=== PATIENT | male | born 1995 | race Caucasian/White ===

== ENCOUNTER → 2019-05-18 09:43 | Outpatient (CLI) | payer OTHER, SELFPAY ==
--- NOTE | 2019-05-18 | DI.MRI.S_ITS ---
PROCEDURE: MR KNEE RT WO CON INDICATIONS: Pain in right knee TECHNIQUE: Noncontrast sagittal PD fast spin echo and T2 fast spin echo with fat saturation, sagittal 3-D FLASH with fat saturation; coronal T1 spin echo and PD fast spin echo with fat saturation, and axial PD fast spin echo with fat saturation through the knee. COMPARISON: None. FINDINGS: Image quality: Excellent. Menisci: The medial and lateral menisci demonstrate normal morphology and internal signal. The meniscal root ligaments appear intact. Cruciate ligaments: Markedly thickened anterior cruciate ligament with intrasubstance fluid signal is seen suggestive of moderate grade partial-thickness tear. No full-thickness ACL rupture. Posterior cruciate ligament is intact. Medial structures: High-grade partial-thickness tear involving the midportion of medial collateral ligament is seen, focal full-thickness perforation cannot be excluded.. The posterior oblique ligament, semimembranosus tendon insertions, oblique popliteal ligament, and meniscocapsular junction appear intact. Visualized portions of the pes anserinus tendons appear normal. No abnormal bursal fluid. Lateral structures: The lateral collateral ligament, long and short heads of the biceps femoris tendon appear intact. The popliteus tendon appears normal; the popliteofibular ligament appears intact. The posterosuperior and anteroinferior popliteomeniscal fascicles appear intact. The arcuate and fabellofibular ligaments appear intact, on either side of the lateral inferior geniculate artery. Iliotibial band appears normal. Anterior structures: The quadriceps and patellar tendons appear intact. Patellar alignment is normal. No femoral trochlear dysplasia or ventral trochlear prominence. No edema in the infrapatellar fat pad. Bones and cartilage: There is marrow edema involving medial periphery of medial femoral condyle with no discrete fracture line seen. Marrow edema is also seen in posterior and lateral portion of proximal tibial shaft extending to lateral tibial plateau. No discrete fracture line is identified. Articulating cartilage in medial and lateral femoral tibial compartments and patellofemoral compartment are grossly intact. Joint space: There is small amount of joint fluid, no gross loose body. No Ng's cyst. Normal appearing synovial plicae are incidentally noted. IMPRESSION: 1. Suggestion of sprain and moderate grade intrasubstance partial-thickness tear involving anterior cruciate ligament. No full-thickness ACL rupture. PCL is intact. 2. High-grade partial-thickness tear involving proximal to midportion of medial collateral ligament, focal area of full thickness perforation cannot be excluded. 3. Bony contusion involving medial periphery of medial femoral condyle and posterior lateral aspect of proximal fibular shaft extending to lateral tibial plateau. No definite fracture is seen. 4. No evidence of focal meniscal tear. Dictated by: Osmar Tomas M.D. on 05/18/2019 at 12:47 Approved by: Osmar Tomas M.D. on 05/18/2019 at 12:57
== END ==
DX: M25.561 Pain in right knee (principal); S83.411A Sprain of medial collateral ligament of right knee, initial encounter; S80.01XA Contusion of right knee, initial encounter
CPT/HCPCS: 73721

== ENCOUNTER 2020-12-23 21:27 | Emergency (ER) | payer OTHER, SELFPAY ==
[2020-12-23 21:37] VITALS: BP 112/51; PULSE 69; RESP 14; TEMP 36.5; O2SAT 100; BMI 22.4
--- NOTE | 2020-12-23 23:57 | ED_ITS ---
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 He states that he flew twice today have a 2nd flight and landing was significantly worse. He noticed some pain on the 1st flight and it progressively got worse. He denies any drainage or blood. He is having a mild sore throat as well no fevers. Related Data Previous Rx's Medication Instructions Recorded amoxicillin 500 mg capsule 500 mg PO BID #14 cap 12/24/20 amoxicillin 500 mg capsule 500 mg PO TID #21 cap 12/24/20 Allergies Allergy/AdvReac Type Severity Reaction Status Date / Time No Known Drug Allergies Allergy Verified 12/23/20 21:37 Review of Systems Review of Systems Narrative: GENERAL: Denies chills,fever HEENT: See HPI RESPIRATORY: Denies dyspnea, cough, wheezing CARDIOVASCULAR: Denies chest pain, palpitations GASTROINTESTINAL: Denies nausea, vomiting MUSCULOSKELETAL: Denies extremity pain, injury SKIN: No rash, no laceration, no pruritus NEUROLOGIC: Denies weakness, dizziness, headache, numbness 8 point review of systems is negative except for those stated above and HPI Patient History Social History Smoking Status: Never smoker Smoking Status: Never smoker Substance Use Type: does not use Exam Initial Vital Signs Initial Vital Signs: Vital Signs Temperature 97.7 F 12/23/20 21:37 Pulse Rate 69 12/23/20 21:37 Respiratory Rate 14 12/23/20 21:37 Blood Pressure 112/51 L 12/23/20 21:37 Pulse Oximetry 100 12/23/20 21:37 GENERAL: Alert and well-appearing 25-year-old male EAR: Right ear is within normal limits Left ear is quite erythematous tympanic membrane is ruptured. No blood. No gross discharge. CARDIOVASCULAR: peripheral pulses in tact, cap refill <2 sec RESPIRATORY: No respiratory distress, speaks in full sentences without difficulty EXTREMITIES: Normal range of motion, no clubbing or edema. Neurovascularly intact NEUROLOGICAL: Cranial nerves II through XII grossly intact. Normal gait and speech. SKIN: Warm, dry, no petechiae, no rashes or lesions. Course Orders Ordered: Discontinued Medications Amoxicillin (Amoxicillin 250 Mg Prepack) 1 bottle MISC SEEINSTR ONE Stop: 12/24/20 00:11 Last Admin: 12/24/20 00:17 Dose: 1 bottle Documented by: MARTIN Ibuprofen (Ibuprofen 400 Mg Tablet) 800 mg PO NOW ONE Stop: 12/24/20 00:11 Last Admin: 12/24/20 00:17 Dose: 800 mg Documented by: MARTIN Vital Signs Vital signs: Vital Signs - 8 hr 12/23/20 21:37 12/24/20 00:18 Temperature 97.7 F Pulse Rate 69 79 Respiratory Rate 14 14 Blood Pressure 112/51 L 110/59 L Pulse Oximetry 100 100 Medical Decision Making MDM Narrative Medical decision making narrative: Patient does have a ruptured tympanic membrane. It is erythematous home no drainage. Will treat him for otitis. [place] no [place] in till tympanic membrane has healed. Discharge Plan Departure Patient Disposition: Home Clinical Impression: Otitis media with rupture of tympanic membrane Qualifiers: Laterality: left Qualified Code(s): H66.92 - Otitis media, unspecified, left ear Instructions: Ruptured Eardrum Activity Restrictions/Additional Instructions: *You have been diagnosed with ruptured tympanic membrane with infection *What to do: At this time it appears that you have an infection that caused ear tympanic membrane to rupture. Unfortunately there is very little to do except pain management and antibiotics. Recommend not flying in till the pain is improved in ear drum has regrown this can take couple of weeks *Continue to take medications as directed Amoxicillin 500 mg 3 times a day for 7 days Motrin 800 mg every 8 hours if needed for [id number] pain Tylenol 1000 mg every 6 hours if needed for mild pain *Follow up with your primary care provider in 2-3 days *Return to ER if you should have increasing pain, fever, decreased hearing [or] any new, worsening or concerning symptoms Prescriptions: New amoxicillin 500 mg capsule 500 mg PO BID Qty: 14 RF: 0 amoxicillin 500 mg capsule 500 mg PO TID Qty: 21 RF: 0 Referrals: Marilyn De MD [Primary Care Provider] -
[2020-12-24] MEDS: AMOXICILLIN 250 MG PREPACK 1 BOTTLE MISC (00:17)
[2020-12-24] MEDS: IBUPROFEN 400 MG TABLET 800 MG PO (00:17)
[2020-12-24 00:18] VITALS: BP 110/59; PULSE 79; RESP 14; O2SAT 100
== END 2020-12-24 00:18 | disposition home or self-care (01) ==
PROVIDERS: Emergency Provider Emergency Medicine
DX: H66.92 Otitis media, unspecified, left ear (principal)
CPT/HCPCS: 99283